=== PATIENT | male | born 1935 | race Caucasian/White ===

== ENCOUNTER 2019-01-30 14:17 | Outpatient (CLI) | payer MEDICARE ==
--- NOTE | 2019-01-30 16:40 | RAD ---
RADIOGRAPH CHEST 2 VIEWS: DATE: 01-30-19 HISTORY: 83-year-old male with chronic diastolic heart failure. FINDINGS: There is no air space density, pulmonary edema, pleural effusion, or pneumothorax. Cardiac size is ne ar the upper limits of normal. There are signs of previous CABG, including sternotomy wires. No inter anabela change overall since 09-29-17. IMPRESSION: 1. No acute pulmonary findings. 2. Status post coronary artery bypass graft surgery is evidence for coronary atherosclerotic disease. dillan POS: YONNY
== END 2019-01-30 14:18 | disposition home or self-care (01) ==
LOC: CP 14:17
PROVIDERS: ATTEND Internal Medicine Cardiovascular Disease
DX: I50.32 Chronic diastolic (congestive) heart failure (principal); I15.0 Renovascular hypertension; I25.10 Atherosclerotic heart disease of native coronary artery without angina pectoris; Z95.1 Presence of aortocoronary bypass graft; Z79.899 Other long term (current) drug therapy
CPT/HCPCS: 71046; 94060; 94727